=== PATIENT | female | born 1945 | race Caucasian/White ===

== ENCOUNTER 2022-01-04 09:55 | Outpatient (CLI) | payer MEDICARE, BC ==
[2022-01-04 10:31] LABS: Mean Corpuscular HGB CONC 33.3 g/dL (32.0-36.0); Mean Corpuscular Volume 98.9 fl (81.6-98.3); Mean Platelet Volume 9.6 fl (7.4-10.4); Platelet Count 248 10x3/uL (150-450); RBC Distribution Width 13.7 % (11.5-14.5); Red Blood Cell (RBC) Count 3.64 10x6/uL (3.90-5.03); White Blood Cell (WBC) Count 4.6 10x3/uL (3.5-10.5)
[2022-01-04 10:44] LABS: Anion Gap 14 mmol/L (10-20); BUN (Urea Nitrogen) 17 mg/dL (9.8-20.1); Calc. Creatinine Clearance 0 mL/min (70-130); Calcium 10.3 mg/dL (7.8-10.44); Carbon Dioxide 24 mmol/L (23-31); Chloride 107 mmol/L (98-107); Glucose 117 mg/dL (83-110); Potassium 4.3 mmol/L (3.5-5.1); Sodium 141 mmol/L (136-145)
[2022-01-04 22:42] LABS: SARS-CoV-2 PCR by NAA Not Detected (NotDetected)
== END 2022-01-04 09:56 | disposition home or self-care (01) ==
LOC: CSHLAB 09:55
PROVIDERS: ATTEND Podiatrist Foot & Ankle Surgery
DX: Z01.818 Encounter for other preprocedural examination (principal); Z20.822 Contact with and (suspected) exposure to COVID-19; M20.42 Other hammer toe(s) (acquired), left foot
CPT/HCPCS: 80048; 85027; 93005; 93010; U0003; U0005

== ENCOUNTER 2022-01-08 11:27 | Day surgery (SDC) | payer MEDICARE, BC ==
[2022-01-03 12:36] VITALS: BMI 22.2
[2022-01-08] MEDS ORDERED: Lidocaine 1% MPF 2 ML VIAL ONE (12:57)
[2022-01-08] MEDS ORDERED: Bupivacaine PF 0.5% 30 ML VIAL ONE (14:52)
[2022-01-08] MEDS ORDERED: Neomycin-Polymyxin 1 ML AMP ONE (14:52)
[2022-01-08] MEDS ORDERED: PROPOFOL 20 ML ONE (14:59)
[2022-01-08] MEDS ORDERED: Fentanyl 100 MCG/2 ML VIAL ONE (14:59)
[2022-01-08] MEDS ORDERED: ceFAZolin 2 GM/Dextrose 50 ML IVPB ONE (15:09)
[2022-01-08] MEDS ORDERED: ePHEDrine Sulfate 50 MG/10 ML VIAL ONE (15:28)
[2022-01-08] MEDS ORDERED: Dexamethasone 20 MG/5 ML VIAL ONE (15:29)
[2022-01-08] MEDS ORDERED: Ondansetron PF 4 MG/2 ML Vial ONE (15:57)
== END 2022-01-08 17:10 | disposition home or self-care (01) ==
LOC: CSHSDC 11:27
PROVIDERS: ATTEND Podiatrist Foot & Ankle Surgery
PROC: 0SGQ04Z Fusion of Left Toe Phalangeal Joint with Internal Fixation Device, Open Approach (ICD-10-PCS; principal; 2022-01-08)
PROC: 0LNW0ZZ Release Left Foot Tendon, Open Approach (ICD-10-PCS; 2022-01-08)
DX: M20.42 Other hammer toe(s) (acquired), left foot (principal); Z79.82 Long term (current) use of aspirin; Z20.822 Contact with and (suspected) exposure to COVID-19
CPT/HCPCS: 28232 ×2; 28285; 73620; C1713 ×2; J0690; J1100; J2405; J2704; J3010; S0020

== ENCOUNTER 2022-12-24 11:09 | Outpatient (CLI) | payer MEDICARE, BC | END 2022-12-24 11:10 | disposition home or self-care (01) | LOC: CSHMAMMO 11:09 | PROVIDERS: ATTEND Family Medicine | DX: Z12.31 Encounter for screening mammogram for malignant neoplasm of breast (principal); Z98.82 Breast implant status | CPT/HCPCS: 77063; 77067 ==